=== PATIENT | female | born 1940 | race Caucasian/White ===

== ENCOUNTER → 2017-08-26 | Outpatient (CLI) | payer OTHER ==
[~2017-08-26] MED LIST: ASPI-232 PO; MAGN400T5 PO; MECL1TAB42 PO; METH1CHW; MULTTAB58 PO
--- NOTE | 2017-08-26 11:55 | DIAGNOSTIC IMAGING REPORT ---
LEFT WRIST 4 VIEWS HISTORY: LEFT WRIST PAIN COMPARISON: None. FINDINGS: There is no fracture or dislocation. Mild soft tissue swelling. 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 A 3 mm linear radiopaque foreign body seen within the volar soft tissues of the wrist. This is best seen on image 4. No radiopaque foreign bodies. IMPRESSION: 1. No fracture or dislocation within the left wrist. 2. Soft tissue swelling. 3. A 3 mm linear radiopaque foreign body seen within the superficial volar soft tissues of the wrist. Electronically signed by: Pablo Joe M.D. 08/26/2017 11:54 AM Dictated Date/Time: 08/26/2017 11:52 AM
== END | disposition home or self-care (01) ==
LOC: C.RADPV 11:13
PROVIDERS: ATTEND Neuromusculoskeletal Medicine & OMM
DX: M25.532 Pain in left wrist (principal)

== ENCOUNTER → 2017-11-18 | Outpatient (CLI) | payer OTHER | END | disposition home or self-care (01) | LOC: C.MAMM 11:15 | PROVIDERS: ATTEND Neuromusculoskeletal Medicine & OMM | DX: M85.88 Other specified disorders of bone density and structure, other site (principal); E55.9 Vitamin D deficiency, unspecified ==